=== PATIENT | male | born 1985 | race Caucasian/White ===

== ENCOUNTER 2019-02-01 00:28 | Emergency (ER) | payer MEDICAID ==
[~2019-02-01] VITALS: Ht 188 cm; Wt 68.0 kg
[2019-02-01 00:28] VITALS: BP_SYST 129
[2019-02-01 01:15] VITALS: BP_SYST 129
== END 2019-02-01 01:15 ==
LOC: SED 00:28
DX: S61.210A Laceration without foreign body of right index finger without damage to nail, initial encounter (principal); W29.0XXA Contact with powered kitchen appliance, initial encounter; Y93.89 Activity, other specified; Y92.89 Other specified places as the place of occurrence of the external cause; Y99.8 Other external cause status
CPT/HCPCS: 99283